=== PATIENT | female | born 1960 | race Caucasian/White ===

== ENCOUNTER 2019-03-04 11:12 | Emergency (ER) | payer SELFPAY ==
[~2019-03-04] VITALS: Ht 157.5 cm; Wt 86.0 kg
[2019-03-04 11:14] VITALS: BP 161/91
[2019-03-04] MEDS ORDERED: GABA-827 PO (11:37)
== END 2019-03-04 11:42 | disposition home or self-care (01) ==
LOC: ED 11:36
DX: Z00.00 Encounter for general adult medical examination without abnormal findings (principal)
CPT/HCPCS: 99281

== ENCOUNTER 2019-03-17 21:48 | Emergency (ER) | payer MEDICAID, OTHER ==
[~2019-03-17] VITALS: Ht 157.5 cm; Wt 82.7 kg
[~2019-03-17 21:48] MED LIST: GABA-827 PO
[2019-03-17 21:49] VITALS: BP 167/89
[2019-03-17] MEDS ORDERED: ALBUTEROL (21:53)
[2019-03-17] MEDS ORDERED: ONDANSETRON 4 MG TABLET PO ONE (22:00)
[2019-03-17 22:45] LABS: MEAN CORPUSCULAR HEMOGLOBIN 28.6 pg (27.0-34.8); MEAN CORPUSCULAR HGB CONC 31.5 g/dL (32.4-35.8); MEAN CORPUSCULAR VOLUME 90.7 fL (80-100); MEAN PLATELET VOLUME 8.3 fL (7.4-10.4); PLATELET COUNT 322 x10^3/uL (130-400); RED CELL DISTRIBUTION WIDTH 14.1 % (9.6-15.2)
[2019-03-17 22:50] LABS: ALANINE AMINOTRANSFERASE 17 U/L (12-78); ALBUMIN 3.5 g/dL (3.4-5.0); ANION GAP 5 mmol/L (5-15); CALCIUM 9.3 mg/dL (8.5-10.1); CHLORIDE 105 mmol/L (98-107); CREATININE 0.94 mg/dL (0.55-1.02)
[2019-03-17 22:52] LABS: ALKALINE PHOSPHATASE 91 U/L (45-117); BILIRUBIN,TOTAL 0.5 mg/dL (0.2-1.0); TOTAL PROTEIN 8.1 g/dL (6.4-8.2)
[2019-03-17 23:22] LABS: BASOPHILS # (AUTO) 0.05 x10^3/uL (0-0.1); BASOPHILS % (AUTO) 1 % (0-1); EOSINOPHILS # (AUTO) 0.13 x10^3/uL (0-0.4); EOSINOPHILS % (AUTO) 1 % (1-7); LYMPHOCYTES # (AUTO) 3.66 x10^3/uL (1-3.4); LYMPHOCYTES % (AUTO) 35 % (22-44); MD SCAN; MONOCYTES # (AUTO) 0.71 x10^3/uL (0.2-0.8); MONOCYTES % (AUTO) 7 % (2-9); NEUTROPHILS # (AUTO) 5.86 x10^3/uL (1.8-6.8); NEUTROPHILS % (AUTO) 56 % (42-75)
[2019-03-17] MEDS ORDERED: ONDANSETRON ODT 4 MG ONE (23:40)
[2019-03-18 00:58] LABS: CULTURE INDICATED? YES; MICROSCOPIC INDICATED
[2019-03-18] MEDS ORDERED: SULFAMETH./TRIMETHOPRIM DS 800MG/160MG TABLET PO ONE (01:30)
[2019-03-18] MEDS ORDERED: SULFAMETH./TRIMETHOPRIM DS 800MG/160MG TABLET ONE (02:07)
== END 2019-03-18 02:17 | disposition home or self-care (01) ==
LOC: ED 23:53
DX: M54.2 Cervicalgia (principal); N39.0 Urinary tract infection, site not specified; R11.2 Nausea with vomiting, unspecified
CPT/HCPCS: 36415; 72050; 80053; 81001; 85025; 87077; 87086; 99284; Q0162; 87186

== ENCOUNTER 2020-09-18 17:13 | Emergency (ER) | payer SELFPAY ==
[~2020-09-18] VITALS: Ht 157.5 cm; Wt 95.5 kg
[~2020-09-18 17:13] MED LIST changes: +ALBUTEROL
[2020-09-18 17:16] VITALS: BP 170/65
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
--- NOTE | 2020-09-18 17:45 | NUR ---
pt to radiology
--- NOTE | 2020-09-18 18:07 | NUR ---
report to Delilah LONG
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
== END 2020-09-18 18:51 | disposition home or self-care (01) ==
LOC: ED 18:30
DX: S70.02XA Contusion of left hip, initial encounter (principal); S80.02XA Contusion of left knee, initial encounter; W18.39XA Other fall on same level, initial encounter; Y93.89 Activity, other specified; Y92.488 Other paved roadways as the place of occurrence of the external cause; Y99.8 Other external cause status
CPT/HCPCS: 99284